=== PATIENT | female | born 1940 | race Caucasian/White ===

== ENCOUNTER 2022-01-07 08:00 | Outpatient (CLI) | payer MEDICARE, OTHER ==
--- NOTE | 2022-01-07 17:34 | XRAY Report ---
PROCEDURE: Abdomen Acute INDICATIONS: ABDOMINAL PAIN AND BLOATING TECHNIQUE: One view chest and two views of the abdomen were acquired. COMPARISON: None FINDINGS: Surgical changes and devices: None. Chest: Lungs are clear. Heart size is normal. No pleural effusions. No pneumoperitoneum. Abdomen: Bowel gas pattern is normal. No suspicious calcifications. Visualized solid organ contour s appear normal. Bones: No suspicious bony lesions. IMPRESSION: No acute cardiopulmonary abnormality. Reviewed by: Linden Lawton on 01/07/2022 5:33 PM PDT Approved by: Linden Lawton on 01/07/2022 5:33 PM PDT Station ID: [id number]
== END 2022-01-07 23:59 | disposition home or self-care (01) ==
LOC: DI.S 08:00
PROVIDERS: ATTEND Physician Assistant Medical
DX: R14.0 Abdominal distension (gaseous) (principal); R10.9 Unspecified abdominal pain